=== PATIENT | female | born 1950 | race Caucasian/White ===

== ENCOUNTER 2023-06-30 11:47 | Emergency (ER) | payer OTHER ==
[~2023-06-30] VITALS: Ht 149.9 cm; Wt 68.2 kg
[2023-06-30 12:12] VITALS: BP 136/66; PULSE 50; RESP 16; O2SAT 97
[2023-06-30 13:22] LABS: Basophils # (auto) 0 10 ^3/uL (0-0.2); Basophils % (auto) 0.4 % (0.0-2.0); Eosinophils # (auto) 0.3 10 ^3/uL (0-0.8); Eosinophils % (auto) 3.9 % (0.0-7.0); Hemoglobin 14.1 g/dL (12.2-16.2); Lymphocytes # (auto) 1.9 10 ^3/uL (0.4-5.4); Lymphocytes % (auto) 24.6 % (10.0-50.0); Mean Corpuscular Hemoglobin 31.1 pg (28.0-32.0); Mean Corpuscular Hgb Conc. 32.8 g/dL (32.0-36.0); Mean Corpuscular Volume 94.7 fL (80.0-100.0); Monocytes # (auto) 0.7 10 ^3/uL (0-1.3); Monocytes % (auto) 9.8 % (0.0-12.0); Neutrophils # (auto) 4.6 10 ^3/uL (1.6-8.6); Neutrophils % (auto) 61.3 % (37.0-80.0); Nucleated Red Blood Cells % 0.1 %; Red Blood Cells 4.54 10^6/uL (4.0-5.20); Red Cell Distribution Width 13.3 % (11.8-14.3); White Blood Cell 7.5 10^3/uL (4.4-10.8)
[2023-06-30 13:30] LABS: INR 1.05 (0.9-1.15); Partial Thromboplastin Time 28.1 SEC (24.5-34.5)
[2023-06-30 13:34] LABS: Alanine Aminotransferase 12 U/L (7-40); Albumin 5.1 g/dL (3.2-4.8); Alkaline Phosphatase 89 U/L (46-116); Anion Gap 2.3 (5-15); Aspartate Aminotransferase 21 U/L (13-40); BUN/Creatinine Ratio 11.7 (10.0-20.0); Bilirubin, Total 0.6 mg/dL (0.2-1.0); Blood Urea Nitrogen 11 mg/dL (9-23); Calcium 9.6 mg/dL (8.7-10.4); Carbon Dioxide 29.7 mmol/L (20-30); Chloride 107 mmol/L (98-107); Glucose 98 mg/dL (74-106); Potassium 4.4 mmol/L (3.5-5.1); Sodium 139 mmol/L (136-145); Total Protein 7.6 g/dL (5.7-8.2)
[2023-06-30] MEDS ORDERED: LORazepam 0.5 MG TAB PO ONE (15:00)
[2023-06-30] MEDS ORDERED: PANTOPRAZOLE 40 MG TAB PO ONE (15:00)
[2023-06-30] MEDS ORDERED: ACETAMINOPHEN 325 MG TAB PO ONE (15:00)
[2023-06-30] MEDS ORDERED: ASPirin 81 mg TAB PO ONE (15:00)
[2023-06-30] MEDS ORDERED: IOHEXOL 350 MG/ML 100ML IJ ONE (15:11)
== END 2023-06-30 18:56 | disposition left against medical advice (07) ==
LOC: ER 11:47
DX: R07.89 Other chest pain (principal); R20.0 Anesthesia of skin; R51.9 Headache, unspecified; R06.02 Shortness of breath; Z88.0 Allergy status to penicillin; Z88.6 Allergy status to analgesic agent; Z79.899 Other long term (current) drug therapy
CPT/HCPCS: 36415; 70450; 71045; 71275; 80053; 83735; 83880; 84443; 84484; 85025; 85379; 85610; 85730; 99284; Q9967